=== PATIENT | male | born 1955 | race Caucasian/White ===

== ENCOUNTER 2017-01-25 16:37 | Emergency (ER) | payer SELFPAY ==
--- NOTE | 2017-01-25 16:48 | EDPHY ---
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 Patient has had depression since the 3rd year medical school. He recently moved from [place] because his daughter lives in [place]. He has had worsening severe depression with thoughts of putting a bag around his head or shooting himself with a gun and he does own several fire arms. He went to the walk-in clinic for mental health and they put him on a psychiatric 72 hour hold and transported to the ED. REVIEW OF SYSTEMS: Eye: no change in vision ENT: no sore throat Cardiac: no chest pain or syncope Pulmonary: no cough or SOB Abdomen: no vomiting, diarrhea, abdominal pain Musculoskeletal: no back pain Skin: no rash Neuro: no headache Constitutional: no fever : no urinary symptoms A comprehensive 10 point review of systems is otherwise negative aside from elements mentioned in the history of present illness. PAST MEDICAL HISTORY: Includes depression and hypertension Social history: No alcohol or drugs General Appearance: Alert and conversant, cooperative. Eyes: No scleral icterus. ENT, Mouth: Normal mucous membranes. Respiratory: Normal respiratory effort, breath sounds equal, lungs are clear to auscultation. Cardiovascular: Regular rate and rhythm. Gastrointestinal: Abdomen is soft and non tender. Neurological: Alert and oriented x3. Normally conversant. Face symmetric, normal movement and sensation in all extremities. Skin: Warm and dry, no rashes. Musculoskeletal: No peripheral edema and no joint swelling. Psychiatric: Depressed affect and admits to suicidal ideation Emergency Department course/MDM: Patient arrives on a mental health hold by the crisis Center. The patient had a medical screening evaluation performed. There does not appear to be an aute emergent medical or surgical condition which would preclude psychiatric evaluation at this time. Mental health evaluation is requested at [phone]: The patient will be transferred to [facility] for inpatient psychiatric hospital bed not available at this facility, in stable condition; accepting physician is Dr. Peace. Constitutional: Initial Vital Signs Temperature (C) 36.8 C 01/25/17 16:37 Heart Rate 86 01/25/17 16:37 Respiratory Rate 18 01/25/17 16:37 Blood Pressure 174/117 H 01/25/17 16:37 O2 Sat (%) 96 01/25/17 16:37 O2 Delivery Mode Room Air Allergies/Adverse Reactions: Penicillins Allergy (Verified 01/25/17 17:05) Home Medications: Medication Instructions Recorded RICKY 01/25/17 Medical Decision Making Differential Diagnosis: Differential diagnosis considered for depression including functional and major depression, situational depression, medication side effect, drugs and alcohol abuse. - Data Points Laboratory Results: Laboratory Results 01/25/17 17:03 01/25/17 17:03 01/25/17 01/25/17 01/25/17 17:30 17:03 17:03 WBC 10.07 10^3/uL H 10^3/uL (3.80-9.50) RBC 5.28 10^6/uL 10^6/uL (4.40-6.38) Hgb 15.5 g/dL g/dL (13.7-17.5) Hct 46.4 % % (40.0-51.0) MCV 87.9 fL fL (81.5-99.8) MCH 29.4 pg pg (27.9-34.1) MCHC 33.4 g/dL g/dL (32.4-36.7) RDW 13.7 % % (11.5-15.2) Plt Count 252 10^3/uL 10^3/uL (150-400) MPV 10.6 fL fL (8.7-11.7) Neut % (Auto) 48.2 % % (39.3-74.2) Lymph % (Auto) 35.6 % % (15.0-45.0) Sherman % (Auto) 9.1 % % (4.5-13.0) Eos % (Auto) 5.4 % % (0.6-7.6) Baso % (Auto) 0.9 % % (0.3-1.7) Nucleat RBC Rel Count 0.0 % % (0.0-0.2) Absolute Neuts (auto) 4.86 10^3/uL 10^3/uL (1.70-6.50) Absolute Lymphs (auto) 3.58 10^3/uL H 10^3/uL (1.00-3.00) Absolute Monos (auto) 0.92 10^3/uL H 10^3/uL (0.30-0.80) Absolute Eos (auto) 0.54 10^3/uL H 10^3/uL (0.03-0.40) Absolute Basos (auto) 0.09 10^3/uL 10^3/uL (0.02-0.10) Absolute Nucleated RBC 0.00 10^3/uL 10^3/uL (0-0.01) Immature Gran % 0.8 % % (0.0-1.1) Immature Gran # 0.08 10^3/uL 10^3/uL (0.00-0.10) Sodium 145 mEq/L H mEq/L (134-144) Potassium 3.7 mEq/L mEq/L (3.5-5.2) Chloride 105 mEq/L mEq/L (97-110) Carbon Dioxide 26 mEq/l mEq/l (22-31) Anion Gap 14 mEq/L mEq/L (8-16) BUN 7 mg/dL mg/dL (7-23) Creatinine 0.8 mg/dL mg/dL (0.7-1.3) Estimated GFR > 60 Glucose 88 mg/dL mg/dL (70-100) Calcium 9.5 mg/dL mg/dL (8.5-10.4) TSH 0.983 uIU/mL uIU/mL (0.465-4.680) Salicylates < 1.0 mg/dL L mg/dL (2.0-20.0) Urine Opiates Screen NEGATIVE (NEGATIVE) Acetaminophen < 10 mcg/mL L mcg/mL (10.0-30.0) Urine Barbiturates NEGATIVE (NEGATIVE) Ur Phencyclidine Scrn NEGATIVE (NEGATIVE) Ur Amphetamine Screen NEGATIVE (NEGATIVE) U Benzodiazepines Scrn NEGATIVE (NEGATIVE) Urine Cocaine Screen NEGATIVE (NEGATIVE) U Marijuana (THC) Screen NON-NEGATIVE H (NEGATIVE) Ethyl Alcohol < 10 mg/dL mg/dL (0-10) Departure - Departure Disposition: Other Psych, Not Ej Clinical Impression: Suicidal ideation, Severe major depression Condition: Fair Referrals: Patient,NotPresent [Unknown] - As per Instructions
[2017-01-25 17:05] VITALS: O2SAT 96
[2017-01-25 17:15] LABS: % IMMATURE GRANULYOCYTES 0.8 % (0.0-1.1); ABSOLUTE IMMATURE GRANULOCYTES 0.08 10^3/uL (0.00-0.10); ADD DIFF? NO; ADD MORPH? NO; ADD SCAN? NO; ATYPICAL LYMPHOCYTE FLAG 0 (0-99); FRAGMENT RBC FLAG 0 (0-99); HEMATOCRIT 46.4 % (40.0-51.0); HEMOGLOBIN 15.5 g/dL (13.7-17.5); LEFT SHIFT FLG 0 (0-99); LIPEMIA HEMOLYSIS FLAG 80 (0-99); MEAN CELL HEMOGLOBIN 29.4 pg (27.9-34.1); MEAN CELL HEMOGLOBIN CONCENTR. 33.4 g/dL (32.4-36.7); MEAN CELL VOLUME 87.9 fL (81.5-99.8); MEAN PLATELET VOLUME 10.6 fL (8.7-11.7); PLATELET CLUMPS FLAG 0 (0-99); PLATELET COUNT 252 10^3/uL (150-400); RED BLOOD CELL COUNT 5.28 10^6/uL (4.40-6.38); RED CELL DISTRIBUTION WIDTH 13.7 % (11.5-15.2)
[2017-01-25 17:34] LABS: ANION GAP 14 mEq/L (8-16); CALCIUM 9.5 mg/dL (8.5-10.4); CARBON DIOXIDE 26 mEq/l (22-31); CHLORIDE 105 mEq/L (97-110); CREATININE 0.8 mg/dL (0.7-1.3); ETHANOL SERUM < 10 mg/dL (0-10); GLOMERULAR FILTRATION RATE > 60; GLUCOSE 88 mg/dL (70-100); POTASSIUM 3.7 mEq/L (3.5-5.2); SALICYLATE < 1.0 mg/dL (2.0-20.0); SODIUM 145 mEq/L (134-144)
[2017-01-25 22:30] VITALS: BP 123/82; PULSE 76; TEMP 98.6
[2017-01-26 01:46] VITALS: RESP 16
== END 2017-01-26 01:30 ==
DX: R45.851 Suicidal ideations (principal); F32.2 Major depressive disorder, single episode, severe without psychotic features; I10 Essential (primary) hypertension
CPT/HCPCS: 80305; G0480

== ENCOUNTER 2017-02-16 12:57 | Inpatient (IN) | payer MEDICAID ==
--- NOTE | 2017-02-16 13:15 | EDPHY ---
H & P - Medical/Surgical History Hx Asthma: No Hx Chronic Respiratory Disease: No Hx Diabetes: No Hx Cardiac Disease: Yes Hx Renal Disease: No Hx Cirrhosis: No Hx Alcoholism: No Hx HIV/AIDS: No Hx Splenectomy or Spleen Trauma: No Other PMH: HTN, depression, ADD - Social History Smoking Status: Never smoked Time Seen by Provider: 02/16/17 13:13 HPI/ROS: CHIEF COMPLAINT: M1, suicidal ideation HISTORY OF PRESENT ILLNESS: 61-year-old male with history of depression, possible bipolar disorder, recent hospitalization for suicidal ideation arrives on M1 hold from [facility] after endorsing suicidal ideation with plan to shoot himself with his rifle. Denies suicide attempt. Denies self- injury. He would like to be rehospitalized.No complaints of physical pain or discomfort. REVIEW OF SYSTEMS: A ten point review of systems was performed and is negative with the exception of the items mentioned in the HPI PAST MEDICAL & SURGICAL HISTORY: Depression SOCIAL HISTORY: no alcohol use PHYSICAL EXAM (Prior to examination, patient consented to physical exam, hands were washed and my usual and customary physical exam procedures followed) 1) GENERAL: Well-developed, well-nourished, alert and oriented. Appears to be in no acute distress. 2) HEAD: Normocephalic, atraumatic 3) HEENT: Pupils equal, round, reactive to light bilaterally. Sclera anicteric. 4) NECK: Full range of motion, no meningeal signs. 5) LUNGS: Clear auscultation bilaterally, no wheezes, no rhonchi, no retractions. 6) HEART: Regular rate and rhythm, no murmur, no heave, no gallop. 7) ABDOMEN: No guarding, no rebound, no focal tenderness, 8) MUSCULOSKELETAL: No peripheral edema or discoloration. 9) BACK: No CVA tenderness 10) SKIN: No rash, no petechiae. 11) Psychiatric: Patient is oriented X 3, there is no agitation. Depressed, flat affect DIFFERENTIAL DIAGNOSIS: in no particular order including but not limited to depression, bipolar disorder, psychosis (Maikel,Patria Sri) Constitutional: Initial Vital Signs Temperature (C) 36.3 C 02/16/17 13:24 Heart Rate 73 02/16/17 13:24 Respiratory Rate 18 02/16/17 13:24 Blood Pressure 147/103 H 02/16/17 13:24 O2 Sat (%) 99 02/16/17 13:24 O2 Delivery Mode Room Air Allergies/Adverse Reactions: Penicillins Allergy (Verified 01/25/17 17:05) Home Medications: Medication Instructions Recorded KLONOPIN 01/25/17 Losartan Potassium 02/16/17 MIRTAZAPINE 02/16/17 Wellbutrin Xl 02/16/17 Medical Decision Making ED Course/Re-evaluation: 5:00 p.m.: Care turned over to Dr. Laguna at this time. (Patria Ko) Other Provider: PHYSICIAN DOCUMENTATION: The patient was evaluated and managed by the Physician Forms Builder and myself. I have reviewed the chart and agree with the findings and plan of care as documented. In addition, I examined the patient myself at 4:05 p.m.. History confirmed as depression with plans to shoot self. Recent hospitalization in [place]. Physical findings as follows: Normally conversant. Endorses suicidal ideation. The patient will be transferred to [facility] for inpatient psychiatric hospital bed not available at this facility, in stable condition; accepting physician is Dr. Tiffanie Keller. I am the secondary supervising physician. (Oleg Laguna) - Data Points Laboratory Results: Laboratory Results 02/16/17 13:15 02/16/17 13:15 02/16/17 02/16/17 02/16/17 13:15 13:15 13:15 WBC 9.64 10^3/uL H 10^3/uL (3.80-9.50) RBC 5.47 10^6/uL 10^6/uL (4.40-6.38) Hgb 15.8 g/dL g/dL (13.7-17.5) Hct 48.0 % % (40.0-51.0) MCV 87.8 fL fL (81.5-99.8) MCH 28.9 pg pg (27.9-34.1) MCHC 32.9 g/dL g/dL (32.4-36.7) RDW 13.9 % % (11.5-15.2) Plt Count 296 10^3/uL 10^3/uL (150-400) MPV 10.7 fL fL (8.7-11.7) Neut % (Auto) 49.8 % % (39.3-74.2) Lymph % (Auto) 34.9 % % (15.0-45.0) Cross % (Auto) 8.4 % % (4.5-13.0) Eos % (Auto) 5.8 % % (0.6-7.6) Baso % (Auto) 0.8 % % (0.3-1.7) Nucleat RBC Rel Count 0.0 % % (0.0-0.2) Absolute Neuts (auto) 4.80 10^3/uL 10^3/uL (1.70-6.50) Absolute Lymphs (auto) 3.36 10^3/uL H 10^3/uL (1.00-3.00) Absolute Monos (auto) 0.81 10^3/uL H 10^3/uL (0.30-0.80) Absolute Eos (auto) 0.56 10^3/uL H 10^3/uL (0.03-0.40) Absolute Basos (auto) 0.08 10^3/uL 10^3/uL (0.02-0.10) Absolute Nucleated RBC 0.00 10^3/uL 10^3/uL (0-0.01) Immature Gran % 0.3 % % (0.0-1.1) Immature Gran # 0.03 10^3/uL 10^3/uL (0.00-0.10) Sodium 146 mEq/L H mEq/L (134-144) Potassium 4.0 mEq/L mEq/L (3.5-5.2) Chloride 105 mEq/L mEq/L (97-110) Carbon Dioxide 27 mEq/l mEq/l (22-31) Anion Gap 14 mEq/L mEq/L (8-16) BUN 12 mg/dL mg/dL (7-23) Creatinine 0.8 mg/dL mg/dL (0.7-1.3) Estimated GFR > 60 Glucose 92 mg/dL mg/dL (70-100) Calcium 10.2 mg/dL mg/dL (8.5-10.4) Salicylates < 1.0 mg/dL L mg/dL (2.0-20.0) Urine Opiates Screen NEGATIVE (NEGATIVE) Acetaminophen < 10 mcg/mL L mcg/mL (10.0-30.0) Urine Barbiturates NEGATIVE (NEGATIVE) Ur Phencyclidine Scrn NEGATIVE (NEGATIVE) Ur Amphetamine Screen NEGATIVE (NEGATIVE) U Benzodiazepines Scrn NEGATIVE (NEGATIVE) Urine Cocaine Screen NEGATIVE (NEGATIVE) U Marijuana (THC) Screen NON-NEGATIVE H (NEGATIVE) Ethyl Alcohol < 10 mg/dL mg/dL (0-10) Departure - Departure Disposition: [facility] IP Clinical Impression: Severe major depression, Suicidal ideation Condition: Good Instructions: Depression (ED) Referrals: [facility],. [Clinic] - As per Instructions
[2017-02-16 13:38] LABS: % IMMATURE GRANULYOCYTES 0.3 % (0.0-1.1); ABSOLUTE IMMATURE GRANULOCYTES 0.03 10^3/uL (0.00-0.10); ADD DIFF? NO; ADD MORPH? NO; ADD SCAN? NO; ATYPICAL LYMPHOCYTE FLAG 10 (0-99); FRAGMENT RBC FLAG 0 (0-99); HEMOGLOBIN 15.8 g/dL (13.7-17.5); LEFT SHIFT FLG 0 (0-99); LIPEMIA HEMOLYSIS FLAG 80 (0-99); MEAN CELL HEMOGLOBIN 28.9 pg (27.9-34.1); MEAN CELL HEMOGLOBIN CONCENTR. 32.9 g/dL (32.4-36.7); MEAN CELL VOLUME 87.8 fL (81.5-99.8); MEAN PLATELET VOLUME 10.7 fL (8.7-11.7); PLATELET CLUMPS FLAG 10 (0-99); PLATELET COUNT 296 10^3/uL (150-400); RED BLOOD CELL COUNT 5.47 10^6/uL (4.40-6.38); RED CELL DISTRIBUTION WIDTH 13.9 % (11.5-15.2)
[2017-02-16 13:51] LABS: ANION GAP 14 mEq/L (8-16); CALCIUM 10.2 mg/dL (8.5-10.4); CARBON DIOXIDE 27 mEq/l (22-31); CHLORIDE 105 mEq/L (97-110); CREATININE 0.8 mg/dL (0.7-1.3); ETHANOL SERUM < 10 mg/dL (0-10); GLOMERULAR FILTRATION RATE > 60; GLUCOSE 92 mg/dL (70-100); SALICYLATE < 1.0 mg/dL (2.0-20.0); SODIUM 146 mEq/L (134-144)
[2017-02-16] MEDS ORDERED: MAG HYDROX/AL HYDROX/SIMETH 30 ML UDCUP PO PRN (21:30)
[2017-02-16] MEDS ORDERED: LORazepam 0.5 MG TAB PO PRN (21:30)
[2017-02-16] MEDS ORDERED: MAGNESIUM HYDROXIDE 30 ML UDCUP PO PRN (21:30)
[2017-02-16] MEDS: ACETAMINOPHEN 325 MG TAB PO PRN (22:00)
[2017-02-16] MEDS: clonazePAM 0.5 MG TAB PO SCH (22:02)
[2017-02-16] MEDS: MIRTAZAPINE 15 MG TAB PO SCH (22:02)
[2017-02-17] MEDS: buPROPion XL 150 MG TAB PO SCH (08:55)
[2017-02-17] MEDS: LOSARTAN POTASSIUM 50 MG TAB PO SCH (08:55)
[2017-02-17] MEDS: clonazePAM 0.5 MG TAB PO SCH ×2 (08:55→20:35)
[2017-02-17] MEDS: IBUPROFEN 600 MG TAB PO PRN (11:23)
[2017-02-17] MEDS: NICOTINE POLACRILEX 2 MG GUM B PRN (13:59)
--- NOTE | 2017-02-17 14:13 | BCON ---
[f rep st] BEHAVIORAL HEALTH CONSULTATION INTERNAL MEDICINE CONSULTATION. DATE OF CONSULTATION: 02/17/2017 REASON FOR REFERRAL: Medical clearance for inpatient behavioral health stay. HISTORY OF PRESENT ILLNESS: The patient presented to the emergency department yesterday having been recently released from a prior psychiatric hospitalization. He says his symptoms are unchanged. He has depression, and suicidality, and a plan to shoot himself with his hunting rifle. He was evaluated by the mental health team and admitted for further psychiatric care. Currently, he complains of left foot pain and swelling consistent with prior gout flares. He reports it is somewhat improved with ibuprofen and acetaminophen. Otherwise, he has no acute medical complaints. PAST MEDICAL HISTORY: 1. Depression.. 2. Hypertension. 3. Gout. 4. History of tobacco dependence remotely. 5. History of alcoholism also remotely. 6. Cardiac dysrhythmia. 7. Dyslipidemia. MEDICATIONS: Prior to admission: 1. Ibuprofen 600 mg p.o. q.6 hours p.r.n. 2. Acetaminophen 500 mg p.o. q.6 hours p.r.n. 3. Bupropion XL 150 mg p.o. daily. 4. Mirtazapine 50 mg p.o. at bedtime. 5. Losartan 100 mg p.o. daily. 6. Clonazepam 0.5 mg p.o. twice daily. SOCIAL HISTORY: He has recently moved to [place] to be closer to his 24-year- old daughter. He is . 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 He has a history of alcoholism, but has been sober for quite some time. He has a history of tobacco smoking, but has quit smoking. FAMILY HISTORY: Noncontributory. REVIEW OF SYSTEMS: Other than as in HPI, a 10-point review of systems is negative. In particular, he denies cough, dyspnea, fevers, chills, chest pain or palpitations, and he reports good exercise tolerance when he does not have a gout flare. He reports he has had approximately an 8 pound weight loss over the past several weeks related to depression. PHYSICAL EXAM: VITAL SIGNS: Blood pressure is 114/77, heart rate is 84, respiratory rate is 16, oxygen saturation is 94% on room air, temperature is 36.6 degrees centigrade. His weight is 89.8 kg for a body mass index of 28.4. GENERAL: This is a well-nourished, well-developed man, sitting in a chair with long hair. Otherwise, well-groomed, cooperative, and in no acute distress. HEENT: Extraocular movements are intact. Pupils are equal, round, reactive to light. Mucous membranes are moist. Dentition is in good condition. His airway is uncrowded, Mallampati class 1. NECK: Supple. HEART: There is a regular rate and rhythm with no murmurs, rubs, or gallops. LUNGS: Clear to auscultation bilaterally. ABDOMEN: Soft, nontender, nondistended, with normoactive bowel sounds. EXTREMITIES: There is no cyanosis or clubbing. There is some swelling to the left foot and erythema at the 1st MCP joint, which is also tender. NEUROLOGIC: He is alert and oriented x3. Cranial nerves 2-12 are grossly intact. There is no focal weakness, and sensation is intact to light touch. SKIN: He has an approximately 1.5 cm brown plaque on his cheek just lateral to the left orbit and above the zygomatic process. It has a somewhat verrucous texture. Overall, the borders are smooth. It is raised approximately 1-2 mm. LABORATORY STUDIES: Drawn in the emergency department: Hematology showed an elevated white blood cell count at 9.63 with no left shift. Serum chemistry showed a slightly high sodium at 1:46. Otherwise, renal function and electrolytes were within normal limits. Serum toxicology screen was negative for ethyl alcohol. Urine toxicology screen was non-negative for marijuana and was otherwise negative for substances of abuse. ASSESSMENT/RECOMMENDATIONS: 1. Mental health issues pending further evaluation and management per Psychiatry and the mental health team. He is interested in electroconvulsive therapy. He reports he had a recent EKG done at the [facility] that he has in his possession. 2. Hypertension appears to be adequately controlled with losartan. 3. Gout. He typically takes ibuprofen and acetaminophen for 3 to 4 days when he has a flare, and has resolution of the flare. Another option would be to treat him with 5 days of prednisone at 40 mg daily. This was discussed with him , and he is willing to do this. However, there is concern about mood changes that could happen on the prednisone and whether it might alter his psychiatric assessment in the process of ECT. So I will leave the judgment about whether to treat with prednisone 40 mg p.o. daily for 5 days up to the psychiatrist. I will add a uric acid level to the labs that were drawn yesterday to assess whether or not he would benefit from uric acid lowering therapy to prevent recurrences. He has about 3 recurrences a year. Would not start uric acid lowering therapy during an acute flare. 4. Seborrheic keratosis is the most likely diagnosis of his skin lesion. However, it would be in his interest, as he reports a history of sun exposure in his youth, to get a biopsy from a well cleaner or primary care after he discharges. 5. History of dyslipidemia on no treatment. He can follow up with his primary care provider after discharge. I see no medical contraindications to the patient's continued stay on the inpatient behavioral health unit or to any psychiatric medications or procedures. Thank you very much for including me in the care of the patient, and please do not hesitate to contact me or the hospitalist service should there be need for further medical evaluation. /[id number]/MODL MTDD
[2017-02-17] MEDS: MIRTAZAPINE 15 MG TAB PO SCH (20:36)
--- NOTE | 2017-02-17 20:54 | SOAPPROG ---
SOAP Progress Note Assessment/Plan: Assessment: 61yo CM former physician/database software technician with long hx of depr vs BMD depr, ADHD admitted on M1 after presenting to 1st appt at [facility] with psychiatrist Dr. Salinas reporting he was not feeling better and was having depor with SI and plan to shoot self (has access to gun) following his recent admit to [facility] inpt psych after 5 day stay (01/26-07/2017). Daily THC x years. Pt send for further eval at [facility] and admitted to for consideration of ECT. Was about to have ECT at [facility] before changed mind b/c had concerns about cognitive sequelae. Pt evaluated, reports + depr and several psychosocial stressors, meds not working. Agrees he can be safe in hospital. Eager to discuss treatment options. New to [place] x 4mo, dtr lives here as only support, unemployed, rent due next week and worries about this too. No psychosis, no luz maria evident. States he has been on numerous different medications and combinations over the years. Never tried ECT. [place] and functioned best for 7 year period in the past when in treatment for ADD and depr and was taking Adderall and Wellbutrin. Plan: resume home meds for now pt will d/w tomorrow about ECT request records from [facility] (labs, ECT) which were done as part of ECT work-up cont M1 hold, safety prec Dictation to follow. Objective: Vital Signs Temp Pulse Resp BP Pulse Ox 36.6 C 84 16 114/77 94 02/17/17 06:00 02/17/17 06:00 02/17/17 06:00 02/17/17 06:00 02/17/17 06:00 - Time Spent With Patient Time Spent With Patient: 60min - Pending Discharge Pending Discharge Within 24 Hours: No Pending Discharge Within 48 Hours: No ICD10 Worksheet Patient Problems: Problems Problem Status Onset Severe major depression Acute Suicidal ideation Acute
--- NOTE | 2017-02-18 04:50 | BAPA ---
[f rep st] ADMISSION PSYCHIATRIC ASSESSMENT CHIEF COMPLAINT: "This time? After I was discharged from [place], I was put on the same medications, they lowered some...and I still felt depressed." Reported depression continued and suicidal ideations with plan to shoot self with a rifle he has at home. . HISTORY OF PRESENT ILLNESS: Patient is a 61-year-old, (x 10yrs) male, unemployed, who presented for his 1st outpatient psychiatric appointment with Dr. Salinas at [facility] on 02/16/2017, after recent discharge from [facility] inpatient psychiatric unit following a 5-day stay. Patient reported to Dr. Salinas that he was not feeling any better, medications were not working. He endorsed suicidal ideation, depressed mood with anhedonia, and an active suicide plan to shoot himself with a rifle that he had at his home. During [facility] hospital stay, he reportedly had given all of his guns to his daughter for safekeeping except for one, which he had not remembered about. Dr. Salinas had concerns for patient's safety and sent him for evaluation at walk-in clinic. He was evaluated and felt to need acute inpatient psychiatric hospitalization for safety and treatment of depression. Focus was around possibly receiving ECT, as patient reports he has been on numerous different medication trials in the past, all ultimately unsuccessful. There were several recent psychosocial stressors including move to [place] with his daughter, who lives in [place], in October 2016, from [place]. 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 Patient endorses all neurovegetative symptoms of depression including depressed mood, anhedonia, and very low energy, decreased concentration, easily tearful, and although has difficulty falling asleep, sleep has been stable. He denied any psychotic symptoms, no auditory or visual hallucinations. Reports long history of having been diagnosed with depression and being treated with many different antidepressants, admits he has also been treated for ADHD in the past but more recently a diagnosis of bipolar mood disorder with depression has been considered. Patient reports becoming concerned when suicidal ideations returned and had been consistent for the past 2 days, stating his thoughts have been "centered around" his rifle that he has at his home, and that he has been walking around with a "loaded round" in his pocket all day 1 day prior to admission. He states "I was engaging in ritualistic behavior, I made a perfect bullet for my a rifle, I have been keeping it in my pocket and rubbing it to feel better." The patient states this thought scared him because he felt there was "nothing to stop me" from committing suicide. Of note, patient became tearful talking about this. He reports previously his daughter would be a protective factor when he felt suicidal, but states he found himself thinking, "she is now 24 and grown, she can handle it, she is capable and self directed..." and such thoughts scared him. In the past, he reports ECT was considered for him approximately 2 years ago; however, he read about all the potential side effects and FDA warnings, including potential long-term cognitive impairment, and this scared him because his cognition and his mind have always helped him to obtain meaningful work. Most recently, he has been at home, isolating, watching [employer] videos on epigenetics and all the breakthroughs that are occurring in the field that he has been missing being a part of (became tearful again). PAST PSYCHIATRIC HISTORY: Patient reports a long psychiatric history since " 3rd year medical school in 1979" at [employer] when he realized he "hated it." He started medication at this time, including lithium and also was in treatment with antidepressants. 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 This contributed to a period of stability and functioning. Also was diagnosed with ADHD at that time and started Adderall with Wellbutrin which he stated worked "amazing" after which he had a long period of psychiatric stability and stable functioning for 7 years. He was seeing a psychiatrist in [place], [place], for many years, including prior to his move to [place] this past October. Reports he was on numerous medications in different combinations with many different receptor profiles and nothing ultimately was sustaining for his mood stability. No previous psychiatric hospitalizations until January 26-2016 at [facility]. He states he was at [employer] to buy a new blue-ray player and his credit card was declined. This precipitated acute suicidal ideation and ultimately his 1st psychiatric hospitalization. Patient reports only 1 time previously feeling suicidal when he started dating someone named Alexia whom he met online 1 year after separation from his in 2006. She was a clinical psychologist, dated her for 2 years. 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 After this, he reports going into a "fugue state, " becoming suicidal, and writing letters. Alexia and his daughter showed up, called his psychiatrist, police came, but ultimately he was not hospitalized. He had recently been referred to [facility] after recent discharge from inpatient unit. He stated that, due to a lot of testing he had done recently, diagnosis of bipolar mood disorder was being considered. On admission, Ramírez Depression Inventory BDI-II with score of 40, noting on assessment scale that he feels sad all the time, pessimistic, feeling as a total failure, unable to derive pleasure from previously enjoyable things, feeling guilty all the time, not liking himself, self critical, having suicidal thoughts that he would like to kill himself, feels like crying but cannot, having difficulty making decisions, possible loss of interest, increased worthless feelings, no interest in sex, and somewhat decreased energy and fatigue and concentration, and irritability. SUBSTANCE USE: History of alcoholism, admitting that he was alcoholic prior to sobriety 5 years ago, denies any alcohol since 2011. Denied cigarette use. Endorses regular marijuana use, daily, and Utox was positive for cannabis on admission. BAL was 0. Patient states he only smokes pot for his anxiety which helps better than Klonopin. Denies any other drug use. Patient reported to [facility] [place] that cannabis also helps aggression and frustration, and that he has not made any attempts to quit use. PSYCHIATRIC MEDICATION: Current medications: Bupropion XL 150 mg daily, clonazepam 0.5 mg b.i.d., mirtazapine 15 mg at bedtime. Patient reports, prior to [place] [facility]ization, he was on the same medication, but higher dosage. States at [place], they decreased Wellbutrin and mirtazapine, and added Abilify 5 mg daily. He recalls having been on this in the past which was not helpful and he had side effects. Following discharge, he self discontinued the Abilify 5 mg due to GI side effects. Medications prior to [place] admission (01/26/2017 ) included Wellbutrin XL 300 mg daily, mirtazapine 30 mg daily, and Klonopin 1 mg at bedtime. He reports that he had been on Adderall until he lost his insurance a year ago and no one addressed this at [place]. SOCIAL HISTORY: He lives alone. Moved to [place] 4 months ago to be near his daughter who also moved to [place] recently and lives in [place]. As noted, he was for 32 years but has been from his since 2009. She is living with a significant other and patient states, "People are going that nowadays, even for tax purposes." He is not in a relationship with any significant other at this time. Mother lives in [place] with his younger sister. Mother calls him weekly, but patient is not close to his siblings. Patient has 2 dogs, currently being taken care of by his daughter. Patient did complete medical school and practice for several years until around 1993. 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 He reports his work was going well, he was working for a wealthy individual, but over the years, he states the relationship soured and his relationship with his suffered, also alcohol use increased, and by 2006, he was getting drunk regularly, resulting and separation from his and ultimate termination of work for this individual. In 2008, he got another job but then was fired "because I was off Adderall." Around this time, he reports developing a "pattern of not being well, in and out of work, having difficulty with employees and employers". At one point, left his employment in a rage after he raged at an employee and this caused an episode of paroxysmal atrial tachycardia and hospital evaluation. Reports next job was essentially beneath him and "old school," they could never do anything right and vice versa. There were several conflicts at that time, although he did work with this job at [employer] for 3 years until around 2013. He ultimately quit for medical reasons and has been inconsistently employed since that time. Patient was recently signed up for Medicaid during his inpatient hospital stay in [place] (01/26 through 01/31/2017). FAMILY HISTORY: Patient reported no family history of mental illness or substance use. LEGAL HISTORY: Denied. PAST MEDICAL HISTORY: Hypertension, elevated cholesterol, history of arrhythmia , and paroxysmal atrial tachycardia in remote past, gout. ALLERGIES: Penicillin. MENTAL STATUS EXAM: Patient was in hospital gown, sitting comfortably with good eye contact. Well groomed. Normal speech rate and volume. Wears eye glasses. Earrings in left year. He appeared stated age. Facial hair neatly trimmed with good attention to grooming. Speech was normal rate and volume. He was engaging and cooperative in interview. Mood was depressed. Affect was appropriate range, seemed somewhat euthymic, but as he talked more of stressors , patient did become tearful at times notably around recent suicidal ideation and reporting previous protective factor of his daughter was not helpful, and also around the gradual decline in his functioning and status, recognizing he may be facing homelessness with inability to pay rent and states he is "broke." Patient denied any psychotic symptoms, there were no auditory or visual hallucinations, and he did not appear responding to any internal stimuli. Insight seemed good. Judgment seemed fair. Cognition seemed conversationally intact. Thought processes were generally linear but over-inclusive. Patient reports goal for hospitalization for a 2nd opinion on his medication and there is consideration for ECT for his depression. He reports ECT and even TMS were considered in the past, but he was reluctant to consider ECT due to concerns for cognitive impairment. Presently, feels depressed and hopeless and suicidal with no protective factors that he is willing to seriously consider ECT. He reports having a workup in preparation for ECT, with all lab work and EKG done at [facility], but then decided not to undergo ECT, and therefore was discharged with followup. DIAGNOSIS: Major Depressive Disorder, severe, with suicidal ideation, Rule out Bipolar mood disorder, depressed. Cannabis use disorder. Alcohol use disorder , in remission since 2011. History of attention deficit hyperactivity disorder. Additional stressors include impending homelessness, unemployment despite history of a successful career, decreased social support, recent move to [place], chronic mental illness PLAN: Patient was admitted to [address] [place] [address] on M1 hold. Continue M1 hold, although anticipate patient would stay voluntarily for treatment given his depression and motivation for treatment. Patient feels previous medications have not been helpful. Very interested in ECT and further discussion about this as an option. It seems that several psychiatrists in the past have made this recommendation to him and he is feeling ready. Workup was done at outside hospital in [place] in anticipation of starting, although patient changed mind. We will obtain records from [facility] including EKG. Continue p.r.n. ibuprofen and acetaminophen for gout flares per patient preference. Patient was restarted on most recent medications as noted above of mirtazapine 15 mg at bedtime, clonazepam 0.5 mg b.i.d., and bupropion XL 150 mg daily. He was not restarted on Abilify due to complaint of side affects and not wanting to resume this medication, also feeling it was ineffective. He was restarted on losartan for hypertension. Encourage groups, and will discuss with Dr. Mccloud regarding ECT. /[id number]/MODL MTDPatria
[2017-02-18] MEDS: IBUPROFEN 600 MG TAB PO PRN ×3 (06:26→20:58)
[2017-02-18] MEDS: ACETAMINOPHEN 325 MG TAB PO PRN ×3 (06:27→20:58)
[2017-02-18] MEDS: LOSARTAN POTASSIUM 50 MG TAB PO SCH (08:56)
[2017-02-18] MEDS: buPROPion XL 150 MG TAB PO SCH (08:57)
[2017-02-18] MEDS: clonazePAM 0.5 MG TAB PO SCH (08:57)
[2017-02-18] MEDS ORDERED: buPROPion XL 150 MG TAB PO ONE (11:34)
[2017-02-18] MEDS ORDERED: clonazePAM 0.5 MG TAB PO PRN (11:49)
[2017-02-18] MEDS: ADDERALL 20 MG TAB PO SCH (12:31)
[2017-02-18] MEDS: predniSONE 20 MG TAB PO SCH (17:14)
[2017-02-18] MEDS ORDERED: PNEUMOCOCCAL 0.5ML VACCINE VIAL IM ONE (19:23)
[2017-02-18] MEDS: MIRTAZAPINE 15 MG TAB PO SCH (22:09)
[2017-02-18] MEDS: clonazePAM 0.5 MG TAB PO PRN (22:09)
[2017-02-19] MEDS: buPROPion XL 150 MG TAB PO SCH (08:17)
[2017-02-19] MEDS: ADDERALL 20 MG TAB PO SCH ×2 (08:18→14:18)
[2017-02-19] MEDS: LOSARTAN POTASSIUM 50 MG TAB PO SCH (08:18)
[2017-02-19] MEDS: predniSONE 20 MG TAB PO SCH (08:18)
[2017-02-19] MEDS: clonazePAM 0.5 MG TAB PO PRN (22:28)
[2017-02-19] MEDS: MIRTAZAPINE 15 MG TAB PO SCH (22:29)
[2017-02-19] MEDS: IBUPROFEN 600 MG TAB PO PRN (22:31)
[2017-02-19] MEDS: ACETAMINOPHEN 325 MG TAB PO PRN (22:31)
--- NOTE | 2017-02-19 23:31 | SOAPPROG ---
SOAP Progress Note Assessment/Plan: Assessment: 61yo with hx depr and ADHD admitted for SI and plan to shoot self with rifle. Long hx of psychiatric tx on mult diff meds, presented also with plan for ECT eval. After d/w Dr. Mccloud, states plan is to resume meds on which he did best in past, Wellbutrin and Adderall. Also recently started on Prednisone for gout. 02/19/17 20:18 per staff, slept 7hr using w/c due to foot pain / gout MSE: pleasant, cooperative, good e/c, talkative, some affective lability noted in his getting tearful briefly about stressors (about unempl, rent due 02/25, house in [place] not yet sold) then expressing frustration about a friend not offering to lend him $ after expressing his hopelessness (prior to admit) then expressing anxiety around need to get a job [employer] and how to prepare for interviewing; mood overall better but with periods of feeling anxious expressing noted worries, thoughts future-oriented and generally linear, with periods of perseveration, no psychosis, denied si/hi although admitted si briefly returned when felt overwhelmed thinking about rent due/no job or $. Has been looking for jobs online, mainly wants one with a good laboratory supervisor/boss who respects him and his abilities. PLAN: -pt states he will consider calling landlord this weekend to see if any flexibility in rent due date -pt requests trial of prn propranolol to help with anxiety, 10-20mg bid prn, mainly for anxiety around t/w landlord, also in anticipation for job interviews he hopes to arrange -cont wellbutrin xl 300mg, recently started adderall 20mg bid as rxd. monitor. -cont remeron 15mg hs -klonopin recently incr back to 1mg bid prn. -pt notes recent start prednisone for gout may be adding to feeling a bit overstimulated, will follow. may be related to incr wellbutrin with addition of bid adderall, or may be just anxiety as he worries about rent/job. -check VS qshift Objective: Vital Signs Temp Pulse Resp BP Pulse Ox 36.3 C 93 14 134/90 H 93 02/19/17 06:00 02/19/17 06:00 02/19/17 06:00 02/19/17 06:00 02/19/17 06:00 Medications Generic Name Dose Route Start Last Admin Trade Name Freq PRN Reason Stop Dose Admin Bupropion HCl 300 mg 02/19/17 09:00 02/19/17 08:17 Wellbutrin Xl PO 08/18/17 08:59 300 mg DAILY JALEN Clonazepam 1 mg 02/18/17 11:54 02/19/17 22:28 Klonopin PO 08/15/17 21:29 1 mg BID PRN Anxiety Losartan Potassium 100 mg 02/17/17 09:00 02/19/17 08:18 Cozaar PO 08/16/17 08:59 100 mg DAILY JALEN Mirtazapine 15 mg 02/16/17 21:30 02/19/17 22:29 Remeron PO 08/15/17 21:29 15 mg HS JALEN Prednisone 40 mg 02/18/17 17:00 02/19/17 08:18 Prednisone PO 02/22/17 16:59 40 mg DAILY JALEN Propranolol HCl 10 - 20 mg 02/19/17 21:35 Inderal PO 08/18/17 21:34 BID PRN Anxiety Amphetamine/Dextroamphetamine 20 mg 02/18/17 14:00 02/19/17 14:18 Adderall PO 08/17/17 13:59 20 mg BID@09,14 JALEN - Time Spent With Patient Time Spent With Patient: 40min - Pending Discharge Pending Discharge Within 24 Hours: No Pending Discharge Within 48 Hours: No ICD10 Worksheet Patient Problems: Problems Problem Status Onset Severe major depression Acute Suicidal ideation Acute
[2017-02-20] MEDS: buPROPion XL 150 MG TAB PO SCH (08:49)
[2017-02-20] MEDS: ADDERALL 20 MG TAB PO SCH ×2 (08:49→14:01)
[2017-02-20] MEDS: LOSARTAN POTASSIUM 50 MG TAB PO SCH (08:50)
[2017-02-20] MEDS: predniSONE 20 MG TAB PO SCH (08:51)
[2017-02-20] MEDS: ACETAMINOPHEN 325 MG TAB PO PRN ×3 (08:51→21:05)
[2017-02-20] MEDS: IBUPROFEN 600 MG TAB PO PRN ×3 (08:53→21:05)
[2017-02-20] MEDS: NICOTINE POLACRILEX 2 MG GUM B PRN (11:26)
[2017-02-20] MEDS: PROPRANOLOL HCL 10 MG TAB PO PRN ×2 (18:02→19:10)
--- NOTE | 2017-02-20 20:29 | SOAPPROG ---
SOMARTY Progress Note Assessment/Plan: Assessment: Plan: 02/20/17 20:30 Pt appears to be dysphoric, but I question any true bipolarity. He is clearly ADHD and needs to primarily address this. We will restart his Adderall at his previous conservative dose of 20mg BID and increase bupropion to 300mg. Risks, benefits and alternatives of both medications are reviewed and pt agrees to proceed. Will monitor over the weekend and likely d/c first of the week to outpt care if SI has abated. Subjective: LATE ENTRY FOR 02/18/17. Pt seen, discussed with staff, chart reviewed. He is a 61 y/o CM with hx of mood problems, ADHD and recent SI. He has been agitated since arriving, demanding an immediate ECT evaluation. Dr. Burt discussed the case with me this morning and I agreed to provide the evaluation today. Pt had lodged numerous complaints about the lack of the evaluation in the first 24 hours since admission before I was able to see him at 1030 this morning. I am able to review with him the standard procedures of evaluation on the inpt unit and what we consider to be appropriate timeliness. He is accepting of this and cooperative during the subsequent 90" evaluation. We reviewed his hx of mood problems. He describes a lingering, treatment resistant depression for at least two years with negative responses to antidepressants, worse with SSRI's. He experiences debilitating apathy and emotional flatness. He goes on to describe primary problems with attention and concentration, executive functioning, task initiation and persistence, organization of daily routine and catastrophic fears of interviewing for a new job due to negative assumptions of the interview process. With this comes an overriding dysphoria, frustration and helpless/hopelessness and is the nexis of his SI. He reports doing well in the past on higher dose buproprion and Adderall. Has not taken Adderall since 08/08. Objective: Vital Signs Temp Pulse Resp BP Pulse Ox 36.6 C 124 H 14 132/88 H 97 02/20/17 13:12 02/20/17 19:10 02/20/17 13:12 02/20/17 19:10 02/20/17 13:12 MSE: Calm, coop. Affect is constricted, dysphoric, but approp. Mood is "bad. " TP linear. TC reveals no psychosis. SI persists, but pt states, "I would never do it, I'm just so frustrated and hopeless I don't know what else to do." - Time Spent With Patient Time Spent With Patient: 90" - Pending Discharge Pending Discharge Within 24 Hours: No Pending Discharge Within 48 Hours: No ICD10 Worksheet Patient Problems: Problems Problem Status Onset Severe major depression Acute Suicidal ideation Acute
[2017-02-20] MEDS: clonazePAM 0.5 MG TAB PO PRN (21:05)
[2017-02-20] MEDS: MIRTAZAPINE 15 MG TAB PO SCH (21:05)
[2017-02-21 09:20] VITALS: BP 138/88; PULSE 98; RESP 12; TEMP 97.8; O2SAT 96
[2017-02-21] MEDS: clonazePAM 0.5 MG TAB PO PRN (09:20)
[2017-02-21] MEDS: ADDERALL 20 MG TAB PO SCH (09:21)
[2017-02-21] MEDS: predniSONE 20 MG TAB PO SCH (09:21)
[2017-02-21] MEDS: LOSARTAN POTASSIUM 50 MG TAB PO SCH (09:21)
[2017-02-21] MEDS: buPROPion XL 150 MG TAB PO SCH (09:21)
[2017-02-21] MEDS: ACETAMINOPHEN 325 MG TAB PO PRN (09:26)
[2017-02-21] MEDS: IBUPROFEN 600 MG TAB PO PRN (09:26)
--- NOTE | 2017-02-21 10:43 | SOAPPROG ---
SOAP Progress Note Assessment/Plan: Assessment: 61yo with hx depr and ADHD admitted for SI and plan to shoot self with rifle. Long hx of psychiatric tx on mult diff meds, presented also with plan for ECT eval. After d/w Dr. Mccloud, states plan is to resume meds on which he did best in past, Wellbutrin and Adderall. Also recently started on Prednisone for gout. 02/19/17 20:18 per staff, slept 7hr using w/c due to foot pain / gout MSE: pleasant, cooperative, good e/c, talkative, some affective lability noted in his getting tearful briefly about stressors (about unempl, rent due 02/25, house in [place] not yet sold) then expressing frustration about a friend not offering to lend him $ after expressing his hopelessness (prior to admit) then expressing anxiety around need to get a job [employer] and how to prepare for interviewing; mood overall better but with periods of feeling anxious expressing noted worries, thoughts future-oriented and generally linear, with periods of perseveration, no psychosis, denied si/hi although admitted si briefly returned when felt overwhelmed thinking about rent due/no job or $. Has been looking for jobs online, mainly wants one with a good child care supervisor/boss who respects him and his abilities. PLAN: -pt states he will consider calling landlord this weekend to see if any flexibility in rent due date -pt requests trial of prn propranolol to help with anxiety, 10-20mg bid prn, mainly for anxiety around t/w landlord, also in anticipation for job interviews he hopes to arrange -cont wellbutrin xl 300mg, recently started adderall 20mg bid as rxd. monitor. -cont remeron 15mg hs -klonopin recently incr back to 1mg bid prn. -pt notes recent start prednisone for gout may be adding to feeling a bit overstimulated, will follow. may be related to incr wellbutrin with addition of bid adderall, or may be just anxiety as he worries about rent/job. -check VS qshift 02/20/17 19:00 per staff, pt slept 8hr Reports feeling good this AM, "More coherent, not pressured or anxious, more myself". Again reiterates feeling this is due to correct medications finally, as he recalls functioning his best, with steady employment, and being most psychiatrically stable when on Adderall and Wellbutrin combination for 7 years in the past. Feels he was more anxious yesterday "because I was worried about talking with my landlord, but now I've been thinking through all of my options", including financial resources and utilizing available support systems. States mother may also help loan him some money, had a good conversation with her. Denies any SI and reports mood is stable and he feels hopeful about the future and his options. Discussed guns in the home, which should've been removed after [facility] d/c, and pt reports they were, by his daughter, but "I'm an amateur gunsmith" and still has unpacking to do from his move to [place], "and I came across an older one I had packed away" as he was continuing to unpack. As he continued to struggle with depression and feeling that med changes in hosp weren't helpful , SI returned with thoughts to use gun. Additionally, discussed his THC use and possible effects on mood as well as risk of psychosis, and advised/encouraged sobriety. Patient adamantly stated quitting was NOT an option, reporting he had read several well-conducted studies, and lists researchers, which dispel the connection between THC and psychosis. Volunteers that some anxiety feelings yesterday may also have been b/c he hasn' t been requesting prn Klonopin in AM as available. MSE: cooperative, in w/c, good eye contact, engaging, talkative not pressured, nml speech rate/vol, affect full range, mood "much better", thoughts linear and goal-directed, denied any AH/VH and any SI, or any thoughts to harm others. motivated to f/u with outpatient [facility] and resources available. aware that guns (2 ) remaining in home need to be out/secured/locked up before pt returns home. professional healthcare representative has also spoken with dtr about this. PLAN: continue current meds. not using AM klonopin off suicide precautions pt is vol status ensure guns are secured/removed before patient returns home will need f/u with PCP after d/c for routine health issues, and gout mgmt pt hasn't tried prn propranolol yet, but wants to try it for performance-type anxiety (apprehensive about potential job interviews, t/w landlord etc) hoping for d/c tomorrow. will f/u with [facility]. pt plans to continue regular THC use which he denies is excessive. Objective: Vital Signs Temp Pulse Resp BP Pulse Ox 36.6 C 98 12 138/88 H 96 02/21/17 08:00 02/21/17 08:00 02/21/17 08:00 02/21/17 09:21 02/21/17 08:00 - Time Spent With Patient Time Spent With Patient: 35min - Pending Discharge Pending Discharge Within 24 Hours: Yes Pending Discharge Date: 02/21/17 Pending Discharge Time: 15:00 ICD10 Worksheet Patient Problems: Problems Problem Status Onset Severe major depression Acute Suicidal ideation Acute
== END 2017-02-21 14:08 | disposition home or self-care (01) | DRG 880 ==
LOC: EDUNIT# → BBEH 20:25
PROVIDERS: ADMIT Psychiatry & Neurology Psychiatry; ATTEND Psychiatry & Neurology Psychiatry
DX: R45.851 Suicidal ideations (principal); F32.2 Major depressive disorder, single episode, severe without psychotic features; F90.1 Attention-deficit hyperactivity disorder, predominantly hyperactive type; F12.90 Cannabis use, unspecified, uncomplicated; I10 Essential (primary) hypertension; L82.1 Other seborrheic keratosis; M10.072 Idiopathic gout, left ankle and foot; I49.9 Cardiac arrhythmia, unspecified; F10.21 Alcohol dependence, in remission; Z23 Encounter for immunization; Z87.891 Personal history of nicotine dependence
CPT/HCPCS: 80305; G0009; G0480